=== PATIENT | female | born 1985 | race Caucasian/White ===

== ENCOUNTER 2018-03-09 16:35 | Emergency (ER) | payer MEDICAID ==
[~2018-03-09] VITALS: Ht 147.3 cm; Wt 57.6 kg
[2018-03-09] MEDS ORDERED: METHOCARBAMOL 750 MG TABLET ONE (18:00)
[2018-03-09] MEDS ORDERED: METHOCARBAMOL 750 MG TABLET PO ONE (18:00)
[2018-03-09] MEDS ORDERED: KETOROLAC 60 MG/2 ML IM ONE (18:00)
[2018-03-09] MEDS ORDERED: KETOROLAC 30 MG/1 ML ONE (18:00)
[2018-03-09 18:26] VITALS: BP 131/89
== END 2018-03-09 18:28 | disposition home or self-care (01) ==
LOC: ED 18:05
DX: M25.511 Pain in right shoulder (principal); M62.830 Muscle spasm of back
CPT/HCPCS: 96372; 99283; J1885

== ENCOUNTER 2018-11-08 19:08 | Emergency (ER) | payer MEDICAID ==
[~2018-11-08] VITALS: Ht 162.6 cm; Wt 60.0 kg
[2018-11-08] MEDS ORDERED: PROCHLORPERAZINE 5 MG/ML, 2ML ONE (19:28)
[2018-11-08] MEDS ORDERED: KETOROLAC 30 MG/1 ML ONE (19:28)
[2018-11-08] MEDS ORDERED: KETOROLAC 30 MG/1 ML IVPush ONE (19:30)
[2018-11-08] MEDS ORDERED: SODIUM CHLORIDE FLUSH 10ML SYR IVF ONE (19:30)
[2018-11-08] MEDS ORDERED: PROCHLORPERAZINE 5 MG/ML, 2ML IVPush ONE (19:30)
[2018-11-08 19:42] LABS: BASOPHILS # (AUTO) 0.02 x10^3/uL (0-0.1); BASOPHILS % (AUTO) 0 % (0-1); EOSINOPHILS # (AUTO) 0.21 x10^3/uL (0-0.4); EOSINOPHILS % (AUTO) 3 % (1-7); LYMPHOCYTES # (AUTO) 3.18 x10^3/uL (1-3.4); LYMPHOCYTES % (AUTO) 39 % (22-44); MD NO; MEAN CORPUSCULAR HEMOGLOBIN 22.1 pg (27.0-34.8); MEAN CORPUSCULAR HGB CONC 32.4 g/dL (32.4-35.8); MEAN CORPUSCULAR VOLUME 68.3 fL (80-100); MEAN PLATELET VOLUME 7.5 fL (7.4-10.4); MONOCYTES % (AUTO) 4 % (2-9); NEUTROPHILS # (AUTO) 4.48 x10^3/uL (1.8-6.8); NEUTROPHILS % (AUTO) 55 % (42-75); PLATELET COUNT 444 x10^3/uL (130-400); RED BLOOD COUNT 4.87 x10^6/uL (3.82-5.3)
[2018-11-08 19:50] LABS: ALBUMIN 3.6 g/dL (3.4-5.0); ANION GAP 4 mmol/L (5-15); CALCIUM 8.9 mg/dL (8.5-10.1); CHLORIDE 108 mmol/L (98-107); CREATININE 0.68 mg/dL (0.55-1.02)
[2018-11-08 20:45] VITALS: BP 108/57
== END 2018-11-08 21:03 | disposition home or self-care (01) ==
LOC: ED 20:57
DX: G43.C1 Periodic headache syndromes in child or adult, intractable (principal); R55 Syncope and collapse
CPT/HCPCS: 36415; 70450; 80048; 82040; 84703; 85025; 93005; 99284